=== PATIENT | male | born 1965 | race Caucasian/White ===

== ENCOUNTER 2024-10-27 08:14 | Outpatient (CLI) | payer OTHER ==
[2024-10-27] MEDS ORDERED: Iopamidol 300 61% 100 ML VIAL FS ONE (10:41)
[2024-10-27] MEDS ORDERED: Magnevist 469MG/ML 20 ML VIAL ONE (11:00)
== END 2024-10-27 08:15 | disposition home or self-care (01) ==
LOC: CSHCT 08:14
PROVIDERS: ATTEND Surgery
DX: K62.89 Other specified diseases of anus and rectum (principal)
CPT/HCPCS: 71260; 72197; 74178; Q9967